=== PATIENT | female | born 1930 | race Caucasian/White ===

== ENCOUNTER 2017-12-31 06:16 | Observation (INO) | payer OTHER ==
[~2017-12-31] VITALS: Ht 149.9 cm; Wt 80.9 kg
[2017-12-31 07:37] VITALS: BP 132/58; PULSE 59; TEMP 36.5; O2SAT 95; BMI 36.0
[2017-12-31] MEDS ORDERED: LIDOCAINE HCL 1% 20 ML VIAL ONE (07:37)
[2017-12-31] MEDS ORDERED: BACITRACIN 50000 UNIT VIAL ONE (07:38)
[2017-12-31] MEDS ORDERED: BUPIVACAINE 0.5 % 5 MG/1 ML MPF 30ML VIAL ONE (07:38)
[2017-12-31] MEDS ORDERED: CEFAZOLIN SOD 1 GM VIAL ONE (07:53)
[2017-12-31] MEDS ORDERED: SIMV20TA2 PO (08:04)
[2017-12-31] MEDS ORDERED: WARF1TAB PO (08:04)
[2017-12-31] MEDS ORDERED: LEVOPOW36 (08:04)
[2017-12-31] MEDS ORDERED: GABA-113 PO (08:04)
[2017-12-31] MEDS ORDERED: EMPA1TAB (08:04)
[2017-12-31] MEDS ORDERED: CHOL2000 PO (08:04)
[2017-12-31] MEDS ORDERED: ACET-1256 PO (08:04)
[2017-12-31] MEDS ORDERED: INSDGI SC (08:04)
[2017-12-31] MEDS ORDERED: FAMO40TA6 PO (08:04)
[2017-12-31] MEDS ORDERED: SENN1TAB86 (08:04)
[2017-12-31] MEDS ORDERED: NVLGI7030 SC (08:04)
[2017-12-31] MEDS ORDERED: FURO-85 PO (08:04)
[2017-12-31] MEDS ORDERED: MAGN400T6 PO (08:04)
[2017-12-31] MEDS ORDERED: LEVO100T PO (08:04)
[2017-12-31] MEDS ORDERED: NTRGSL/4 SL (08:04)
[2017-12-31] MEDS ORDERED: LISIPOW (08:04)
--- NOTE | 2017-12-31 08:06 | History & Physical Bridge Note ---
H&P Re-Evaluation Bridge Note: I have examined the patient, reviewed the History & Physical and in the interval since the performance of the History & Physical I have noted the following changes of clinical significance: No changes noted
--- NOTE | 2017-12-31 08:07 | Pre Sedation Assessment ---
Pre Sedation Assessment General Date of Sedation: Dec 31, 2017. Vital Signs Past 12 Hours Date Time Temp Pulse Resp B/P (MAP) Pulse Ox O2 Delivery O2 Flow Rate FiO2 12/31/17 07:37 36.5 59 18 132/58 (82) 95 Room Air Review Cardiovascular: + bradycardia, + irregularly irregular Lungs: lungs clear, normal breath sounds Pre-Sedation Airway Assessment Smoking Status: Never Smoker Hx of Sleep Apnea: No Short Thick Neck: Yes Thyro-mental Distance: < or =3 Finger Breadths Oral Cavity: Capped Teeth Mallampati Classification: Class II ASA Classification: Class II NPO Status Date of Last Intake of Fluids: Dec 30, 2017 Time of Last Intake of Fluids: 1899 Date of Last Intake of Solids: Dec 30, 2017 Time of Last Intake of Solids: 1899 Procedure Planning Contraindications for Sedation: None Current Medications Reviewed: Yes Notes The planned sedation has been discussed with the patient. Informed Consent was obtained. I have identified the patient, determined the appropriateness of sedation and have assessed the patient immediately prior to the procedure. All medicine(s) and interventions are by my order.
[2017-12-31] MEDS ORDERED: FENTANYL CITRATE INJ 50 MCG/1 ML 2 ML VIAL ONE (08:17)
[2017-12-31] MEDS ORDERED: MIDAZOLAM HCL 5 MG/ML 1 ML VIAL ONE (08:17)
[2017-12-31] MEDS ORDERED: DiphenhydrAMINE HCL 50 MG/ML VIAL ONE (08:25)
[2017-12-31] MEDS ORDERED: METHYLPREDNISOLONE 125 MG VIAL ONE (08:25)
[2017-12-31] MEDS ORDERED: RANITIDINE HCL 25 MG/ML INJ ONE (08:26)
--- NOTE | 2017-12-31 09:27 | [facility] Post Operative Brief Note ---
Immediate Operative Summary Operative Date Dec 31, 2017. Pre-Operative Diagnosis sss, permanent AF Post-Operative Diagnosis same Procedure(s) Performed single chamber rate responsive permanent pacemaker with peripheral venogram under flurscopic guidance Surgeon diamond reyes Pnp Surgeon(s) none Estimated Blood Loss <10cc Findings See Below see official report Fluids (cc crystalloids) 28cc Specimens none Drains None Anesthesia Type IV Sedat Cons RN Only Complication(s) none Disposition Accompanied Pt To Recover: yes Disposition: PCU
[2017-12-31] MEDS ORDERED: ACETAMINOPHEN 325 MG TAB PO PRN (09:30)
[2017-12-31] MEDS ORDERED: NITROGLYCERIN 0.4 MG SL PER TAB CHARGE SL PRN (09:30)
[2017-12-31 09:48] VITALS: BP 141/72; PULSE 82; TEMP 36.8; BMI 35.6
[2017-12-31 10:47] LABS: INR 1.9 (0.9-1.1)
[2017-12-31 10:57] VITALS: BP 149/57; PULSE 60; TEMP 36.6; O2SAT 88
--- NOTE | 2017-12-31 11:50 | Discharge Instructions ---
Discharge Instructions Date of Service Dec 31, 2017. Admission Reason for Admission: Sick Sinus Syndrome Discharge Discharge Diagnosis / Problem: SSS, permanent atrial fibrillation Discharge Goals Goal(s): Improve function Activity Recommendations Activity Limitations: as noted below Lifting Limitations: no more than 10 pounds (do not lift the left elbow over the left shoulder for 1 month) Driving or Machine Use: resume 1 day after discharge . Instructions / Follow-Up Instructions / Follow-Up ACTIVITY RECOMMENDATIONS: * Do not raise affected arm over head for 4 weeks. SPECIAL CARE INSTRUCTIONS: * If bleeding occurs, apply direct pressure to area for 5 minutes. * Call your doctor if you have severe pain, fever, drainage or bleeding at site. * Keep dry for 24 hours. * Keep any scheduled doctor's appointment. * Implant Card - hand held device with website information given. SKIN IRRITATION: * You may experience some redness and/or swelling in the area where radiation was administered. If any skin irritation occurs, please contact your family physician. FOLLOW UP VISIT: Keep any scheduled doctor appointments. Current Hospital Diet Patient's current hospital diet: AHA Diet (Heart Healthy) Discharge Diet Recommended Diet: AHA Diet (Heart Healthy) Procedures Procedures Performed: single chamber rate responsive permanent pacemaker with peripheral venogram under flurscopic guidance Pending Studies Studies pending at discharge: no Medical Emergencies . Who to Call and When: Medical Emergencies: If at any time you feel your situation is an emergency, please call 911 immediately. . Non-Emergent Contact Non-Emergency issues call your: Business Sales Consultant . . "Provider Documentation" section prepared by Tessa Murphy. .
[2017-12-31 12:00] VITALS: PULSE 60; O2SAT 88
[2017-12-31] MEDS: INSULIN ASPART 100 UNITS/ML 3 ML PEN SC SCH ×3 (12:12→21:08)
[2017-12-31] MEDS: INSULIN GLARGINE SOLOSTAR 100 UNITS/ML 3 ML PEN SC SCH (12:12)
[2017-12-31] MEDS ORDERED: IV FLUIDS COMPLETED PRN (12:30)
[2017-12-31 14:35] VITALS: Ht 149.9 cm; Wt 80.9 kg
[2017-12-31] MEDS: ACETAMINOPHEN/CODEINE 300/30MG TAB PO PRN ×2 (15:45→21:11)
[2017-12-31 16:00] VITALS: BP 150/64; PULSE 68; TEMP 36.8; O2SAT 92
[2017-12-31 19:39] VITALS: BP 151/76; PULSE 59; TEMP 36.8; O2SAT 92
[2017-12-31] MEDS ORDERED: NURSING VERBAL MED ORDER ONE (21:00)
[2017-12-31] MEDS ORDERED: INSULIN GLARGINE SOLOSTAR 100 UNITS/ML 3 ML PEN SC ONE (21:15)
[2018-01-01 00:22] VITALS: BP 152/63; PULSE 60; TEMP 36.9; O2SAT 93
[2018-01-01 03:48] VITALS: BP 118/65; PULSE 60; TEMP 36.5; O2SAT 97
[2018-01-01] MEDS: ACETAMINOPHEN/CODEINE 300/30MG TAB PO PRN (04:34)
[2018-01-01] MEDS ORDERED: LEVOTHYROXINE 100 MCG TAB PO SCH (06:00)
--- NOTE | 2018-01-01 06:48 | DIAGNOSTIC IMAGING REPORT ---
CHEST 2 VIEWS ROUTINE HISTORY: 87 years-old Female EXACT TIME ORDERED Evaluate for pneumothorax and lead placement status post placement of a single lead left subclavian pacer COMPARISON: None available TECHNIQUE: 2 views of the chest FINDINGS: Cardiac silhouette is mildly enlarged. Atherosclerosis of the aorta. Status post placement of a single lead left subclavian pacer with lead overlying the right ventricle. Expected postsurgical swelling and deep tissue air is noted about the left chest. No postprocedural pneumothorax identified. The lateral view is limited secondary to positioning of the patient's left arm. No overt pulmonary edema. Blunting of the cost phrenic angles bilaterally may suggest atelectasis or trace effusions. Subsegmental bibasilar opacities suggest atelectasis. IMPRESSION: 1. Status post placement of a single lead left subclavian pacer with lead overlying the right ventricle. No postprocedural pneumothorax. 2. Cardiomegaly without overt pulmonary edema. 3. Suspected trace bilateral pleural effusions. The above report was generated using voice recognition software. It may contain grammatical, syntax or spelling errors. Electronically signed by: Carlos Noguera M.D. 01/01/2018 6:47 AM Dictated Date/Time: 01/01/2018 6:44 AM
[2018-01-01 06:53] LABS: INR 1.6 (0.9-1.1)
[2018-01-01] MEDS: INSULIN ASPART 100 UNITS/ML 3 ML PEN SC SCH (07:57)
[2018-01-01] MEDS: INSULIN GLARGINE SOLOSTAR 100 UNITS/ML 3 ML PEN SC SCH (07:58)
[2018-01-01 08:00] VITALS: O2SAT 88
[2018-01-01 08:18] VITALS: BP 134/75; PULSE 61; TEMP 36.3; O2SAT 94
[2018-01-01 08:52] VITALS: BP 134/75; PULSE 61; TEMP 36.3; O2SAT 94
[2018-01-01] MEDS ORDERED: FAMOTIDINE 20 MG TAB PO SCH (09:00)
[2018-01-01] MEDS ORDERED: LISINOPRIL 2.5 MG TAB PO SCH (09:00)
[2018-01-01] MEDS ORDERED: GABAPENTIN 300 MG CAP PO SCH (09:00)
[2018-01-01] MEDS ORDERED: SIMVASTATIN 20 MG TAB PO SCH (09:00)
[2018-01-01] MEDS ORDERED: FUROSEMIDE 20 MG TAB PO SCH (09:00)
--- NOTE | 2018-01-01 11:32 | Discharge Summary ---
Discharge Summary Date of Service Jan 01, 2018. Discharge Summary Admission Date: Dec 31, 2017 at 08:53 Discharge Date: Jan 01, 2018 Discharge Disposition: Home Principal Diagnosis: SSS s/p single chamber pacemaker Secondary Diagnoses/Problems: Permanent AF on coumadin [id number] CAD HTN DM HLD Hypothyroidism Moderate MR Moderate to severe TR Chronic diastolic HF, NYHA Class III pulmonary HTN On supplemental O2 at night Procedures: single chamber permanent pacemaker with peripheral venogram Medication Reconciliation Continued Medications: Acetaminophen (Tylenol) 500 Mg Tab 1 TAB PO Q8 for 3 Days, #10 TAB Cholecalciferol (Vitamin D3) 2,000 Unit Cap 1 CAP PO DAILY for 30 Days, #30 CAP 3 Refills Empagliflozin (Jardiance) 10 Mg Tab 1 TAB DAILY Famotidine (Pepcid) 40 Mg Tab 40 MG PO DIRECTED, TAB Furosemide (Lasix) 20 Mg Tab 1 TAB PO MWF for 90 Days, TAB 1 Refill Gabapentin (Neurontin) 300 Mg Cap 300 MG PO DAILY, CAP Insulin Aspart 70/30 (Novolog Mix 70/30) Susp 0 SC, BTL Insulin Glargine (Lantus) 100 Unit/Ml Inj 30 UNITS SC DAILY, VIAL Levothyroxine Sodium (Synthroid) 100 Mcg Tab 1 TAB PO DAILY for 30 Days, #30 TAB 5 Refills Levothyroxine Sodium (Bulk) (Levothyroxine Sodium) 1 Pow Pow Lisinopril (Bulk) (Lisinopril) 1 Pow Pow 2.5 MG DAILY Magnesium Oxide (Mag-Ox) 400 Mg Tab 250 MG PO DAILY, TAB Nitroglycerin (Nitrostat) 0.4 Mg Tab 1 TAB SL UD, #100 TAB 3 Refills Sennosides-Docusate Sodium (Sennalax-S) 1 Tab Tab 2 TABS DAILY Simvastatin (Zocor) 20 Mg Tab 1 TAB PO DAILY for 90 Days, #90 TAB 1 Refill Warfarin Sodium (Coumadin) 1 Mg Tab 1 TAB PO DAILY for 30 Days, #30 TAB 5 Refills Admission Information Physical Exam (per Admitting): aaox3, NAD Supple No JVD Irregular S1/S2, +systolic Murmur CTA b/l No w/r/r Soft NT/ND No edema b/l No focal deficits Skin intact Hospital Course Pt admitted for elective single chamber permanent pacemaker due to SSS and permanent AF with SVR. Pt underwent procedure without any complications- monitored overnight and discharged home. Total time spent on discharge = > 30 minutes This includes examination of the patient, discharge planning, medication reconciliation, and communication with other providers. Discharge Instructions ACTIVITY RECOMMENDATIONS: * Do not raise affected arm over head for 4 weeks. SPECIAL CARE INSTRUCTIONS: * If bleeding occurs, apply direct pressure to area for 5 minutes. * Call your doctor if you have severe pain, fever, drainage or bleeding at site. * Keep dry for 24 hours. * Keep any scheduled doctor's appointment. * Implant Card - hand held device with website information given. SKIN IRRITATION: * You may experience some redness and/or swelling in the area where radiation was administered. If any skin irritation occurs, please contact your family physician. FOLLOW UP VISIT: Keep any scheduled doctor appointments.
--- NOTE | 2018-01-01 11:35 | Cardiology Follow-Up ---
Subjective Subjective Date of Service: Jan 01, 2018. Pt evaluation today including: conversation w/ patient, physical exam Pain: none Review of Systems Constitutional: No fever, No fatigue ENT: No nasal symptoms Respiratory: No shortness of breath Cardiac: No chest pain, No edema, No palpitations Abdomen: No nausea, No vomiting Female : No dysuria Endo: No fatigue Objective Vital Signs Last Vital Signs Documentation Date Time Temp Pulse Resp B/P (MAP) Pulse Ox O2 Delivery O2 Flow Rate FiO2 01/01/18 08:52 36.3 61 18 94 Room Air 01/01/18 08:18 134/75 (94) 01/01/18 08:00 3.0 Physical Exam: General Appearance: WD/WN, no apparent distress Eyes: bilateral eyes PERRL, bilateral eyes EOMI ENT: normal ENT inspection Neck: supple, no JVD Respiratory/Chest: lungs clear, normal breath sounds Cardiovascular: no edema, + systolic murmur, + irregularly irregular Abdomen: soft Neurologic/Psychiatric: alert, oriented x 3 Skin: warm/dry (left pectoral incision intact; no hematoma; mild ecchymosis) Assessment and Plan Impression: 1. SSS s/p single chamber pacemaker 12/31/2017 2. Permanent AF on coumadin [id number] 3. CAD 4. HTN 5. DM 6. HLD 7. Hypothyroidism 8. Moderate MR 9. Moderate to severe TR 10. Chronic diastolic HF, NYHA Class III 11. pulmonary HTN 12. On supplemental O2 at night Plan: -ok for discharge today -continue home medications -pt not allowed to lift more than 10 pounds with the left arm for 2 weeks; can not lift the left elbow over the left shoulder for 1 month -device and wound check next week Discharge planning: home Medications: Medications Administered Medications (Trade) Dose Ordered Sig/Evan Route Start Time Stop Time Status Last Admin Dose Admin Cefazolin Sodium (Ancef Inj) 1,000 mg STK-MED ONCE .ROUTE 12/31/17 07:53 12/31/17 07:54 DC 12/31/17 07:53 1,000 MG Midazolam HCl (Versed Inj) 5 mg STK-MED ONCE .ROUTE 12/31/17 08:17 12/31/17 08:18 DC 12/31/17 08:17 4 MG Fentanyl Citrate (Fentanyl Inj) 100 mcg STK-MED ONCE .ROUTE 12/31/17 08:17 12/31/17 08:18 DC 12/31/17 08:17 75 MCG Diphenhydramine HCl (Benadryl Inj) 50 mg STK-MED ONCE .ROUTE 12/31/17 08:25 12/31/17 08:26 DC 12/31/17 08:31 50 MG Methylprednisolone Sodium Succinate (Solu-Medrol IV) 125 mg STK-MED ONCE .ROUTE 12/31/17 08:25 12/31/17 08:26 DC 12/31/17 08:31 125 MG Ranitidine HCl (zANTac IV) 50 mg STK-MED ONCE .ROUTE 12/31/17 08:26 12/31/17 08:27 DC 12/31/17 08:31 50 MG Acetaminophen/ Codeine Phosphate (Tylenol w/ Codeine #3 Tab) 1 tab for pain scale 4-6 2 t... Q4H PRN PO 12/31/17 09:30 01/01/18 10:28 DC 01/01/18 04:34 2 TAB Famotidine (Pepcid Tab) 40 mg DAILY PO 01/01/18 09:00 01/01/18 10:29 DC 01/01/18 07:54 40 MG Furosemide (Lasix Tab) 20 mg DAILY PO 01/01/18 09:00 01/01/18 10:29 DC 01/01/18 07:54 20 MG Gabapentin (Neurontin Cap) 300 mg DAILY PO 01/01/18 09:00 01/01/18 10:29 DC 01/01/18 07:53 300 MG Insulin Aspart (novoLOG ASPART) SLIDING SCALE ACHS SC 12/31/17 11:00 01/01/18 10:29 DC 01/01/18 07:57 7 UNITS Insulin Glargine (Lantus Solostar Pen) 30 units DAILY SC 12/31/17 11:00 01/01/18 10:29 DC 01/01/18 07:58 30 UNITS Levothyroxine Sodium (Synthroid Tab) 100 mcg DAILYBB PO 01/01/18 06:00 01/01/18 10:29 DC 01/01/18 06:14 100 MCG Simvastatin (Zocor Tab) 20 mg DAILY PO 01/01/18 09:00 01/01/18 10:29 DC 01/01/18 07:53 20 MG Lisinopril (Zestril Tab) 2.5 mg DAILY PO 01/01/18 09:00 01/01/18 10:29 DC 01/01/18 07:54 2.5 MG Insulin Glargine (Lantus Solostar Pen) 15 units ONE ONCE SC 12/31/17 21:15 12/31/17 21:16 DC 12/31/17 21:10 15 UNITS Lab Results: ECG: AF with V pacing Telemetry; AF with V pacing Pacemaker interrogation: normal function Last 24 Hours Test 12/31/17 12:06 12/31/17 16:48 12/31/17 20:19 01/01/18 06:36 Bedside Glucose 305 mg/dl 274 mg/dl 283 mg/dl Prothrombin Time 16.7 SECONDS Prothromb Time International Ratio 1.6 Test 01/01/18 07:03 Bedside Glucose 201 mg/dl
[2018-01-01] MEDS ORDERED: WARFARIN SOD 1 MG TAB PO SCH (16:00)
--- NOTE | 2018-01-01 20:43 | OPERATIVE REPORT ---
DATE OF OPERATION: 12/31/2017 PREOPERATIVE DIAGNOSIS: Sick sinus syndrome, permanent atrial fibrillation. POSTOPERATIVE DIAGNOSIS: Same. PROCEDURE: A single chamber rate responsive permanent pacemaker under fluoroscopic guidance along with peripheral venogram. SURGEON: Tessa Murphy DO ACCESS CLERK: None. ANESTHESIA: Monitored conscious sedation administered under my supervision by Diana Culver. Start time 8:31, end time 9:15, total of 4 mg of Versed, 75 mcg of fentanyl. IV FLUIDS: 28 mL. ANTIBIOTICS: 1 gram of Ancef. BLOOD LOSS: Less than 20 mL. COMPLICATIONS: None. CONDITION: Stable. URINE OUTPUT: Not applicable. SPECIMENS: None. OTHER MEDICINES: Due to her iodine allergy, she was pretreated with Zantac 50 mg, Solu-Medrol 125 mg, and Benadryl 25 mg. FINDINGS: See below. DRAINS: None. INDICATIONS: This is an 87-year-old female who has a past medical history for permanent atrial fibrillation with slow ventricular response and a CHADS2-VASc score of 5, coronary artery disease, hypertension, diabetes, hyperlipidemia, hypothyroidism, moderate mitral regurgitation, [id number] tricuspid regurgitation, chronic diastolic heart failure, [place] Heart Association class 3, pulmonary hypertension, and wears oxygen at nighttime. Due to her sick sinus syndrome and permanent atrial fibrillation with slow ventricular response, she was recommended single chamber permanent pacemaker. CONSENT: Consent was obtained prior to the patient going into the electrophysiology lab. Patient was explained the risks, benefits, and alternatives to procedure. Risks include, but not limited to, sudden cardiac , cardiac arrhythmias, cerebrovascular accident, myocardial infarction, injury to the blood vessels, chamber of the heart, lung, bleeding, and infection. The patient understood these risks and agreed to the procedure as planned. Informed consent was obtained. DESCRIPTION OF PROCEDURE: Patient was brought into the electrophysiology lab in fasting state. She was connected to continuous web application tester. A timeout was performed to ensure patient identity and procedure correctly. Patient was prepped and draped over the left infraclavicular space in normal surgical standard fashion. Monitored conscious sedation was given throughout the procedure for patient's comfort level. [place] precautions were maintained throughout the procedure. A 10 mL of 1% lidocaine, bupivacaine mixture was given in the left deltopectoral groove. Incision was made in the left deltopectoral groove. Blunt dissection was performed down to identify the cephalic vein, however, none could be identified. So a peripheral venogram using 10 mL of IV contrast diluted in 10 mL of saline followed by 20 mL flush was performed. This did identify the axillary vein as well as the cephalic vein; however, my incision was too low to get to the cephalic vein. So I did an axillary stick without any problems. The guidewire was inserted without any resistance. A 7-Turkmen sheath was inserted over the guidewire without any resistance. Dilator and the wire were removed and the right ventricular pacing lead was then advanced into right ventricle and positioned into the ventricular apex under fluoroscopic guidance. There was adequate pacing and sensing thresholds and no diaphragmatic stimulation with high output pacing. The sheath was peeled away and lead was fixated to pectoralis muscle using 0 silk suture. A pacemaker pocket was created over the pectoralis muscle using blunt dissection and the pocket was flushed with copious amounts of bacitracin saline wash and inspected for hemostasis. The pulse generator was then attached to the lead making sure that the pins were in appropriate position, passed set screws and set screws were all tightened. The pulse generator was then placed in the pocket making sure that the leads were lying flat beneath the device, and a stay stitch using 0 silk suture was used to secure the device to the pectoralis muscle. An [place] stat was placed in the pocket as patient is going back on Coumadin. Then the incision was closed in a 3-layer fashion with 2-0 Vicryl interrupted suture followed by 3-0 Vicryl interrupted suture followed by 4-0 Monocryl running stitch and Dermabond was applied. EQUIPMENT: 1. Pulse generator is a Medtronic [place] XT SR MRI SureScan [id number], serial #[id number]. 2. Right ventricular lead, Medtronic 5076-58 cm, serial #[id number]. FINAL PARAMETERS: VVIR 60/130, right ventricular amplitude 3.5 volts, pulse width 0.4 milliseconds, sensitivity 0.9 millivolts. IMPRESSION: Successful implantation of a single chamber rate responsive permanent pacemaker under fluoroscopic guidance along with a peripheral venogram secondary to sick sinus syndrome and permanent atrial fibrillation. PLAN: Monitor patient overnight, 12-lead ECG, chest x-ray. She is not allowed to lift the left elbow over left shoulder for 1 month. She cannot lift more than 10 pounds with the left arm for 2 weeks. She can shower tomorrow, let water run over the incision, do not scrub it. She can continue her home medications and she should follow up in our [facility] office for device and wound check in 1 week's time. I attest to the content of the Intraoperative Record and any orders documented therein. Any exception s are noted below.
== END 2018-01-01 10:28 | disposition home or self-care (01) ==
LOC: C.ACU 06:16 → ENRESERV 08:51 → C.2T 08:53
PROVIDERS: ADMIT Internal Medicine; ATTEND Internal Medicine
DX: I49.5 Sick sinus syndrome (principal); I48.2 Chronic atrial fibrillation; Z79.01 Long term (current) use of anticoagulants; I25.10 Atherosclerotic heart disease of native coronary artery without angina pectoris; I10 Essential (primary) hypertension; E11.9 Type 2 diabetes mellitus without complications; E78.5 Hyperlipidemia, unspecified; E03.9 Hypothyroidism, unspecified; I34.0 Nonrheumatic mitral (valve) insufficiency; I50.32 Chronic diastolic (congestive) heart failure; I27.20 Pulmonary hypertension, unspecified; I07.1 Rheumatic tricuspid insufficiency; I35.0 Nonrheumatic aortic (valve) stenosis; R00.1 Bradycardia, unspecified; Z79.899 Other long term (current) drug therapy; Z79.84 Long term (current) use of oral hypoglycemic drugs; Z79.4 Long term (current) use of insulin; E66.01 Morbid (severe) obesity due to excess calories; Z90.49 Acquired absence of other specified parts of digestive tract; Z90.710 Acquired absence of both cervix and uterus; Z98.890 Other specified postprocedural states; Z80.0 Family history of malignant neoplasm of digestive organs; Z83.3 Family history of diabetes mellitus; Z82.49 Family history of ischemic heart disease and other diseases of the circulatory system; Z82.3 Family history of stroke